=== PATIENT | male | born 2000 | race American Indian/Alaskan Native ===

== ENCOUNTER 2018-05-10 17:28 | Emergency (ER) | payer MEDICAID ==
--- NOTE | 2018-05-10 18:09 | C.PDOC ---
History Of Present Illness 18 y/o male presents to the ER requesting to get checked after eating raw chicken. Patient states he came home, saw chicken in the fridge, warmed it in the microwave and ate several pieces. Then his roommate came home and told him the chicken was not yet cooked. Patient has no symptoms at this time but was concerned about infection, prompting him to come to the ER. He currently denies any nausea, vomiting, diarrhea, bloody stools, fever, or other complaints. Time Seen by Provider: 05/10/18 18:02 Chief Complaint (Nursing): Medical Clearance History Per: Patient History/Exam Limitations: no limitations Past Medical History Reviewed: Historical Data, Nursing Documentation, Vital Signs Vital Signs: Last Vital Signs Temp 99.1 F 05/10/18 18:00 Pulse 68 05/10/18 18:00 Resp 18 05/10/18 18:00 BP 104/68 05/10/18 18:00 Pulse Ox 97 05/10/18 18:08 - Medical History PMH: No Chronic Diseases Other Surgeries: Bilateral knee surgery Family History: States: No Known Family Hx - Social History Hx Tobacco Use: No Hx Alcohol Use: No Hx Substance Use: No Review Of Systems Except As Marked, All Systems Reviewed And Found Negative. Constitutional: Negative for: Fever, Chills Gastrointestinal: Negative for: Nausea, Vomiting, Abdominal Pain, Diarrhea, Hematochezia, Hematemesis Physical Exam - Physical Exam Appears: Non-toxic, No Acute Distress Skin: Normal Color, Warm, Dry Head: Atraumatic, Normacephalic Eye(s): bilateral: Normal Inspection, PERRL, EOMI Oral Mucosa: Moist Neck: Normal ROM, Supple Chest: Symmetrical Cardiovascular: Rhythm Regular, No Murmur Respiratory: Normal Breath Sounds, No Accessory Muscle Use, No Rhonchi, No Wheezing Gastrointestinal/Abdominal: Soft, No Tenderness, No Distention, No Guarding Extremity: Bilateral: Atraumatic, Normal Color And Temperature, Normal ROM Neurological/Psych: Oriented x3, Normal Speech ED Course And Treatment O2 Sat by Pulse Oximetry: 97 (RA) Pulse Ox Interpretation: Normal Medical Decision Making Medical Decision Making: Impression: Normal exam findings Plan: Reassured patient of normal exam. Patient is stable for discharge home. Advised to follow up with the clinic or return to the ER for any acutely worsening symptoms. Disposition Counseled Patient/Family Regarding: Need For Followup - Disposition Disposition: HOME/ ROUTINE Disposition Time: 18:08 Condition: STABLE Forms: [facility] (Thai), General Discharge Instructions - POA Present On Arrival: None - Clinical Impression Clinical Impression: Medical assessment - Scribe Statement The provider has reviewed the documentation as recorded by the Kendellibe Mimi Burton Provider Attestation: All medical record entries made by the Kendellibe were at my direction and personally dictated by me. I have reviewed the chart and agree that the record accurately reflects my personal performance of the history, physical exam, medical decision making, and the department course for this patient. I have also personally directed, reviewed, and agree with the discharge instructions and disposition.
[2018-05-10 18:15] VITALS: BP 104/68; PULSE 68; RESP 18; TEMP 99.1; O2SAT 97
== END 2018-05-10 18:22 | disposition home or self-care (01) ==
LOC: C.ER 17:28
DX: Z00.00 Encounter for general adult medical examination without abnormal findings (principal)